=== PATIENT | male | born 1985 | race Caucasian/White ===

== ENCOUNTER 2017-01-14 00:19 | Emergency (ER) | payer OTHER ==
[~2017-01-14] VITALS: Ht 193 cm; Wt 106.8 kg
[2017-01-14 00:24] VITALS: BP 136/79; PULSE 75; TEMP 98.5
== END 2017-01-14 01:30 | disposition home or self-care (01) ==
LOC: COL.ER 00:19
DX: H10.31 Unspecified acute conjunctivitis, right eye (principal)